=== PATIENT | female | born 1940 | race African-American/Black ===

== ENCOUNTER 2020-08-10 17:46 | Emergency (ER) | payer OTHER ==
[~2020-08-10] VITALS: Ht 157.5 cm; Wt 54.4 kg
[2020-08-10 17:50] VITALS: BP 149/67
[2020-08-10] MEDS ORDERED: LATUDA20 MG PO (19:44)
[2020-08-10] MEDS ORDERED: VITAMIN B-121000 MC3 PO (19:45)
[2020-08-10] MEDS ORDERED: NOXIFOL-D32500 UNIT PO (19:45)
[2020-08-10] MEDS ORDERED: VITAMIN D21250 MCG PO (19:46)
[2020-08-10] MEDS ORDERED: PROTONIX40 M2 PO (19:47)
[2020-08-10 19:49] VITALS: BP 149/67
--- NOTE | 2020-08-11 17:27 | EKG ---
[place] [address] [place] [address] ELECTROCARDIOGRAM REPORT Name: CONNIE HAMILTON Room #: [facility]#: [id number] Admission: 08/10/20 Attend Phys: Discharge: 08/10/20 Date of : 42 Report #: [id number] [facility] ED Test Date: 2020-08-10 Test Time: 18:19:14 Pat Name: CONNIE HAMILTON Department: Room: Gender: F Entry Level Electrician: shabana : 1940 Requested By: He Lopez Order Number: [id number] MD: Laci Best Measurements Intervals [place] Rate: 70 P: 40 GA: 149 QRS: -84 QRSD: 148 T: 76 QT: 450 QTc: 486 Interpretive Statements Sinus rhythm Left atrial enlargement RBBB and LAFB Artifact in lead(s) I,II,III,aVR,aVL,aVF No previous ECG available for comparison Electronically Signed On 08-11-2020 17:27:09 CDT by Laci Best [email or web address] <ELECTRONICALLY SIGNED> By: Laci Best MD, [facility] 08/11/20 1727 18 18 Laci Best MD, FACC /EPI
== END 2020-08-10 20:20 | disposition home or self-care (01) ==
LOC: ER 17:46 → EROBS 18:32 → ER 18:32
DX: F22 Delusional disorders (principal); Z20.822 Contact with and (suspected) exposure to COVID-19; F30.9 Manic episode, unspecified